=== PATIENT | female | born 1960 | race Caucasian/White ===

== ENCOUNTER 2020-02-01 07:01 | Outpatient (NON) | payer SELFPAY ==
[2020-02-02 00:38] LABS: SARS-CoV-2 RNA PCR Negative
== END 2020-02-01 07:02 ==
PROVIDERS: Visit Provider Registered Nurse
DX: Z20.828 Contact with and (suspected) exposure to other viral communicable diseases (principal); R50.9 Fever, unspecified; J02.9 Acute pharyngitis, unspecified
CPT/HCPCS: 87635; C9803; U0003